=== PATIENT | male | born 1985 | race African-American/Black ===

== ENCOUNTER 2016-10-29 18:47 | Emergency (ER) | payer SELFPAY ==
[~2016-10-29] VITALS: Ht 190.5 cm; Wt 117.9 kg
--- NOTE | 2016-10-29 19:43 | Emergency Room Report ---
History of Present Illness General Chief Complaint: Pain Source: Patient Present Illness HPI 31-year-old male presents emergency department complaining of bilateral foot pain stating he has an acute gouty attack. Patient states he has a history of gout which he is prescribed indomethacin and colchicine to be taken during acute attacks. Patient states that he is out of his medication and that he is here visiting from [place]. Patient states that he typically has one or 2 attacks of gout her ear however he states that more recently they have become more frequent. Patient denies taking preventative medications for gout. he denies nausea vomiting fevers chills, erythema or trauma to the affected extremities. Denies numbness tingling or loss of sensation or gross motor movements of the extremities, incontinence of bowel or bladder. Denies CP, Palpitations, LOC, AMS, dizziness, Changes in Vision, Sensation, paresthesias, or a sudden severe headache. Allergies: Coded Allergies: No Known Allergies (Unverified , 10/29/16) Patient History Past Medical History: see triage record, other - gout Past Surgical History: none Pertinent Family History: none Immunizations: UTD Reviewed Nursing Documentation: PMH: Agreed, PSxH: Agreed Review of Systems All Other Systems: negative except mentioned in HPI Physical Exam Vital Signs Date Time Temp Pulse Resp B/P Pulse Ox O2 Delivery O2 Flow Rate FiO2 10/29/16 19:20 98.1 80 15 161/110 98 Room Air Sp02 EP Interpretation: reviewed, abnormal - elevated BP General Appearance: no apparent distress, alert, GCS 15, non-toxic Head: normocephalic, atraumatic Eyes: bilateral eye PERRL, bilateral eye normal inspection ENT: hearing grossly normal, normal pharynx, no angioedema, normal voice Neck: full range of motion, supple/symm/no masses Respiratory: lungs clear, normal breath sounds, speaking full sentences Cardiovascular #1: regular rate, rhythm, no edema Musculoskeletal: back normal, gait/station normal, normal range of motion, no calf tenderness, tender - TTP to the bilateral ankle joints, significant ttp to light touch, swelling noted and increased temperature to palpation, no appreciable erythema Neurologic: alert, oriented x3, responsive, motor strength/tone normal, sensory intact, speech normal Psychiatric: judgement/insight normal, memory normal, mood/affect normal, no suicidal/homicidal ideation Skin: normal color, no rash, warm/dry, well hydrated, other - TTP to the bilateral ankle joints, significant ttp to light touch, swelling noted and increased temperature to palpation, no appreciable erythema Medical Decision Making PA Attestation Dr. Seals is my supervising Physician whom patient management has been discussed with. Diagnostic Impression: Primary Impression: Gout attack Qualified Codes: M10.9 - Gout, unspecified ER Course Pt. presents to the ED c/o Pain and swelling of bilateral ankles x 2 Day(s). - Pt. prescribed colchicine and indomethacin for acute attacks however he is out , and is here visiting from [place]. Ddx considered but are not limited to cellulitis, Septic joint, pseudogout fracture, d/L, gout Vital signs: elevated BP, remaining VS are WNL, pt. is afebrile- Pt denies hx of HTN. H&PE are most consistent with recurrent gout attack. ORDERS: none required at this time, the diagnosis is clinical ED INTERVENTIONS: -Colchicine PO -Indomethacin PO DISCHARGE: At this time pt. is stable for d/c to home. Will provide printed patient care instructions, and any necessary prescriptions. Care plan and follow up instructions have been discussed with the patient prior to discharge. Last Vital Signs Date Time Temp Pulse Resp B/P Pulse Ox O2 Delivery O2 Flow Rate FiO2 10/29/16 19:20 98.1 80 15 161/110 98 Room Air Disposition: HOME, SELF-CARE Condition: Stable Scripts Indomethacin (INDOMETHACIN) 50 Mg Capsule 50 MG PO TID, #10 CAP Prov: Deja Glaser 10/29/16 Colchicine (Colchicine) 0.6 Mg Capsule 0.6 MG PO Q1HR, #1 CAP Prov: Deja Glaser 10/29/16 Patient Instructions: Gout, [id number] Additional Instructions: Take medications as directed. Follow up with PCP in 3-5 days Return sooner to ED if new symptoms occur, or current symptoms become worse. - Please note that this Emergency Department Report was dictated using [employer] artist technology software, occasionally this can lead to erroneous entry secondary to interpretation by the dictation equipment. Deja Glaser Oct 29, 2016 19:42
[2016-10-29] MEDS ORDERED: Indomethacin 25mg cap ORAL ONE (19:45)
[2016-10-29] MEDS ORDERED: INDOMETHACIN50 MG PO (19:56)
[2016-10-29] MEDS ORDERED: COLCHICINE0.6 M1 PO (19:56)
[2016-10-29 20:10] VITALS: BP 145/99
[2016-10-29 20:14] VITALS: BP 145/99
== END 2016-10-29 20:14 | disposition home or self-care (01) ==
LOC: EMR 19:35
DX: M10.9 Gout, unspecified (principal)
CPT/HCPCS: 99284